=== PATIENT | female | born 1985 | race Caucasian/White ===

== ENCOUNTER 2016-10-31 04:06 | Emergency (ER) | payer OTHER ==
[2016-10-31 06:32] VITALS: BP 128/74
== END 2016-10-31 06:32 | disposition home or self-care (01) ==
LOC: ED 04:06
DX: N10 Acute pyelonephritis (principal)
CPT/HCPCS: J0696

== ENCOUNTER 2017-06-05 15:43 | Emergency (ER) | payer MEDICAID ==
[~2017-06-05] VITALS: Ht 152.4 cm; Wt 79.8 kg
[2017-06-05 15:51] VITALS: Ht 152.4 cm; Wt 79.8 kg
[2017-06-05 17:01] VITALS: BP 124/76
== END 2017-06-05 17:01 | disposition home or self-care (01) ==
LOC: ED 15:43
DX: B34.9 Viral infection, unspecified (principal); R73.03 Prediabetes
CPT/HCPCS: J1885; Q0162

== ENCOUNTER 2017-10-18 18:51 | Emergency (ER) | payer MEDICAID ==
[~2017-10-18] VITALS: Ht 157.5 cm; Wt 80.3 kg
[2017-10-18 21:11] VITALS: BP 127/83
== END 2017-10-18 21:11 | disposition home or self-care (01) ==
LOC: ED 18:51
DX: M25.572 Pain in left ankle and joints of left foot (principal)

== ENCOUNTER 2017-12-01 16:00 | Emergency (ER) | payer MEDICAID ==
[~2017-12-01] VITALS: Ht 149.9 cm; Wt 79.4 kg
[2017-12-01 16:03] VITALS: Ht 149.9 cm; Wt 79.4 kg
[2017-12-01 18:10] VITALS: BP 127/75
== END 2017-12-01 18:10 | disposition home or self-care (01) ==
LOC: ED 16:00
DX: R10.12 Left upper quadrant pain (principal)
CPT/HCPCS: J1885

== ENCOUNTER 2018-05-03 14:25 | Inpatient (IN) | payer MEDICAID ==
[~2018-05-03] VITALS: Ht 160 cm; Wt 82.6 kg
[2018-05-03 14:27] VITALS: Ht 160 cm; Wt 82.6 kg
[2018-05-03 15:05] LABS: BASOPHIL % 0.4 % (0-2); PLATELET COUNT 292 x10^3mcL (130-400); RED CELL DISTRIBUTION WIDTH 12.8 % (11.5-14.5)
[2018-05-03 15:10] LABS: CHLORIDE SERUM 98 mmol/L (98-107); SODIUM SERUM 134 mmol/L (136-145)
[2018-05-03 15:35] LABS: microscopic required? YES; urine erythrocyte TRACE (NEGATIVE)
[2018-05-03 15:35] LABS: ALBUMIN 4.2 g/dL (3.4-5.0); ALKALINE PHOSPHATASE 134 U/L (46-116); ALT/SGPT 92 U/L (14-59); AST/SGOT 52 U/L (15-37); BILIRUBIN TOTAL 0.2 mg/dL (0.20-1.00); CALCIUM 9.8 mg/dL (8.5-10.1); CARBON DIOXIDE 22.4 mmol/L (21-32); CREATININE SERUM 0.8 mg/dL (0.6-1.0); FREE T4 1.18 ng/dL (0.76-1.46); GFR1 > 60 mL/min; GLUCOSE SERUM 122 mg/dL (74-106); LIPASE 164 IU/L (73-393)
[2018-05-03 15:44] LABS: AMPHETAMINE QUAL UR NONE DETECTED (See below)
[2018-05-03 15:56] LABS: TOTAL PROTEIN, SERUM 10.3 g/dL (6.4-8.2)
[2018-05-03 19:21] LABS: CHOLESTEROL/HDL RATIO 4.8; MAGNESIUM 1.9 mg/dL (1.8-2.4)
[2018-05-03 20:45] VITALS: BP 126/75
[2018-05-03 23:10] VITALS: BP 126/75
[2018-05-04 00:40] VITALS: BP 102/60
[2018-05-04 05:40] VITALS: BP 104/58
[2018-05-04 06:56] LABS: CALCIUM 8.2 mg/dL (8.5-10.1); CARBON DIOXIDE 27.2 mmol/L (21-32); CHLORIDE SERUM 106 mmol/L (98-107); CREATININE SERUM 0.7 mg/dL (0.6-1.0); GFR1 > 60 mL/min; GLUCOSE SERUM 117 mg/dL (74-106); MAGNESIUM 2.1 mg/dL (1.8-2.4); PHOSPHOROUS 3.5 mg/dL (2.5-4.9); POTASSIUM SERUM 3.7 mmol/L (3.5-5.1); SODIUM SERUM 140 mmol/L (136-145)
[2018-05-04 07:43] LABS: BASOPHIL % 0.4 % (0-2); PLATELET COUNT 218 x10^3mcL (130-400); RED CELL DISTRIBUTION WIDTH 13.6 % (11.5-14.5)
[2018-05-04 10:03] VITALS: BP 124/76
[2018-05-04 16:33] VITALS: BP 134/84
[2018-05-04 21:17] VITALS: BP 115/72
[2018-05-05 05:31] VITALS: BP 109/74
[2018-05-05 06:40] LABS: BASOPHIL % 0.4 % (0-2); PLATELET COUNT 213 x10^3mcL (130-400); RED CELL DISTRIBUTION WIDTH 13.8 % (11.5-14.5)
[2018-05-05 07:01] LABS: CALCIUM 8.2 mg/dL (8.5-10.1); CHLORIDE SERUM 103 mmol/L (98-107); CREATININE SERUM 0.7 mg/dL (0.6-1.0); GFR1 > 60 mL/min; GLUCOSE SERUM 106 mg/dL (74-106); MAGNESIUM 2.5 mg/dL (1.8-2.4); PHOSPHOROUS 3.6 mg/dL (2.5-4.9); POTASSIUM SERUM 3.1 mmol/L (3.5-5.1); SODIUM SERUM 138 mmol/L (136-145)
[2018-05-05 08:31] VITALS: BP 118/84
[2018-05-05 12:32] VITALS: BP 103/64
[2018-05-05 16:47] VITALS: BP 107/80
[2018-05-05 20:53] VITALS: BP 125/88
[2018-05-06 06:01] VITALS: BP 113/71
[2018-05-06 07:52] LABS: BASOPHIL % 0.4 % (0-2); PLATELET COUNT 209 x10^3mcL (130-400)
[2018-05-06 08:05] LABS: CALCIUM 8.4 mg/dL (8.5-10.1); CHLORIDE SERUM 108 mmol/L (98-107); CREATININE SERUM 0.7 mg/dL (0.6-1.0); GFR1 > 60 mL/min; GLUCOSE SERUM 104 mg/dL (74-106); MAGNESIUM 2.1 mg/dL (1.8-2.4); PHOSPHOROUS 3.6 mg/dL (2.5-4.9); POTASSIUM SERUM 4.3 mmol/L (3.5-5.1); SODIUM SERUM 143 mmol/L (136-145)
[2018-05-06 09:42] VITALS: BP 132/89
[2018-05-06] MEDS ORDERED: AUGMENTIN 875-1 EACH PO (11:33)
[2018-05-06] MEDS ORDERED: TAM75 PO (11:35)
[2018-05-06] MEDS ORDERED: LAC PO (11:35)
[2018-05-06 12:50] VITALS: BP 132/89
== END 2018-05-06 14:37 | disposition home or self-care (01) | DRG 113 ==
LOC: ED 14:25 → DU 18:20
PROVIDERS: Emergency Medicine; ADMIT Internal Medicine
DX: J02.0 Streptococcal pharyngitis (principal); E11.65 Type 2 diabetes mellitus with hyperglycemia; J09.X2 Influenza due to identified novel influenza A virus with other respiratory manifestations; E83.39 Other disorders of phosphorus metabolism; E83.41 Hypermagnesemia; E83.51 Hypocalcemia; B95.0 Streptococcus, group A, as the cause of diseases classified elsewhere; E87.6 Hypokalemia; E78.5 Hyperlipidemia, unspecified; Z68.30 Body mass index [BMI] 30.0-30.9, adult; Z79.84 Long term (current) use of oral hypoglycemic drugs
CPT/HCPCS: 82962; 84439; 87804; J2270; J2405; J2550; J7030; Q0092

== ENCOUNTER 2018-07-23 20:49 | Emergency (ER) | payer MEDICAID ==
[~2018-07-23] VITALS: Ht 154.9 cm; Wt 80.7 kg
[~2018-07-23 20:49] MED LIST: AUGMENTIN 875-1 EACH PO; LAC PO; TAM75 PO
[2018-07-23 21:00] VITALS: Ht 154.9 cm; Wt 80.7 kg
[2018-07-24 02:24] VITALS: BP 126/89
== END 2018-07-24 02:24 | disposition home or self-care (01) ==
LOC: ED 20:49
DX: K40.90 Unilateral inguinal hernia, without obstruction or gangrene, not specified as recurrent (principal); E11.9 Type 2 diabetes mellitus without complications; E66.9 Obesity, unspecified
CPT/HCPCS: J1885

== ENCOUNTER 2018-10-27 12:27 | Emergency (ER) | payer MEDICAID ==
[~2018-10-27] VITALS: Ht 162.6 cm; Wt 79.8 kg
[2018-10-27 12:33] VITALS: Ht 162.6 cm; Wt 79.8 kg
[2018-10-27 13:04] LABS: BASOPHIL % 0.7 % (0-2); PLATELET COUNT 247 x10^3mcL (130-400); RED CELL DISTRIBUTION WIDTH 13.8 % (11.5-14.5)
[2018-10-27 13:15] LABS: CARBON DIOXIDE 24.9 mmol/L (21-32); CHLORIDE SERUM 104 mmol/L (98-107); CREATININE SERUM 0.6 mg/dL (0.6-1.0); GFR1 > 60 mL/min; GLUCOSE SERUM 115 mg/dL (74-106); POTASSIUM SERUM 3.6 mmol/L (3.5-5.1); SODIUM SERUM 140 mmol/L (136-145)
[2018-10-27 13:19] LABS: ALBUMIN 3.5 g/dL (3.4-5.0); ALKALINE PHOSPHATASE 105 U/L (46-116); ALT/SGPT 33 U/L (14-59); AST/SGOT 16 U/L (15-37); BILIRUBIN TOTAL 0.23 mg/dL (0.20-1.00); LIPASE 160 IU/L (73-393)
[2018-10-27 14:56] VITALS: BP 151/89
== END 2018-10-27 14:50 | disposition home or self-care (01) ==
LOC: ED 12:27
PROVIDERS: Emergency Medicine
DX: K27.9 Peptic ulcer, site unspecified, unspecified as acute or chronic, without hemorrhage or perforation (principal); K29.70 Gastritis, unspecified, without bleeding; I10 Essential (primary) hypertension; E11.9 Type 2 diabetes mellitus without complications; Z98.890 Other specified postprocedural states
CPT/HCPCS: J2270; J2405; J3490; J7030; Q0092

== ENCOUNTER 2019-01-09 18:40 | Emergency (ER) | payer MEDICAID ==
[~2019-01-09] VITALS: Ht 157.5 cm; Wt 78.9 kg
[2019-01-09 18:55] VITALS: Ht 157.5 cm; Wt 78.9 kg
[2019-01-09 19:26] LABS: BASOPHIL % 0.6 % (0-2); PLATELET COUNT 298 x10^3mcL (130-400); RED CELL DISTRIBUTION WIDTH 13.4 % (11.5-14.5)
[2019-01-09 21:14] VITALS: BP 115/69
== END 2019-01-09 21:14 | disposition home or self-care (01) ==
LOC: ED 18:40
DX: N92.6 Irregular menstruation, unspecified (principal); I10 Essential (primary) hypertension; E11.9 Type 2 diabetes mellitus without complications
CPT/HCPCS: 36415; J1885

== ENCOUNTER 2019-01-24 18:10 | Emergency (ER) | payer MEDICAID ==
[~2019-01-24] VITALS: Ht 152.4 cm; Wt 78.9 kg
[2019-01-24 18:19] VITALS: Ht 152.4 cm; Wt 78.9 kg
[2019-01-24 20:34] VITALS: BP 129/86
== END 2019-01-24 20:35 | disposition home or self-care (01) ==
LOC: ED 18:10
DX: R07.89 Other chest pain (principal); M54.9 Dorsalgia, unspecified; I10 Essential (primary) hypertension; E11.9 Type 2 diabetes mellitus without complications; Z98.890 Other specified postprocedural states
CPT/HCPCS: 82962; J1885

== ENCOUNTER 2019-04-29 16:31 | Emergency (ER) | payer MEDICAID ==
[~2019-04-29] VITALS: Ht 162.6 cm; Wt 80.7 kg
[2019-04-29 18:00] VITALS: Ht 162.6 cm; Wt 80.7 kg
[2019-04-29 19:01] LABS: BASOPHIL % 0.2 % (0-2); PLATELET COUNT 336 x10^3mcL (130-400)
[2019-04-29 19:14] LABS: CALCIUM 9.5 mg/dL (8.5-10.1); CHLORIDE SERUM 100 mmol/L (98-107); CREATININE SERUM 0.7 mg/dL (0.6-1.0); GFR1 > 60 mL/min; GLUCOSE SERUM 118 mg/dL (74-106); SODIUM SERUM 137 mmol/L (136-145)
[2019-04-29 19:19] LABS: ALBUMIN 3.7 g/dL (3.4-5.0); ALKALINE PHOSPHATASE 107 U/L (46-116); ALT/SGPT 38 U/L (14-59); AST/SGOT 20 U/L (15-37); BILIRUBIN TOTAL 0.3 mg/dL (0.20-1.00); MAGNESIUM 2.1 mg/dL (1.8-2.4)
[2019-04-29 19:20] LABS: TOTAL PROTEIN, SERUM 8.8 g/dL (6.4-8.2)
[2019-04-29 20:01] LABS: UA SPECIFIC GRAVITY >=1.030 (1.005-1.035); microscopic required? YES; urine erythrocyte TRACE (NEGATIVE)
[2019-04-29 20:48] VITALS: BP 125/92
== END 2019-04-29 20:48 | disposition home or self-care (01) ==
LOC: ED 16:31
PROVIDERS: Emergency Medicine
DX: E11.649 Type 2 diabetes mellitus with hypoglycemia without coma (principal); I10 Essential (primary) hypertension; Z98.890 Other specified postprocedural states
CPT/HCPCS: 36415; 82962; 87804

== ENCOUNTER 2019-10-27 16:51 | Emergency (ER) | payer MEDICAID ==
[~2019-10-27] VITALS: Ht 152.4 cm; Wt 78.9 kg
[2019-10-27 17:07] VITALS: Ht 152.4 cm; Wt 78.9 kg
[2019-10-27 17:35] LABS: microscopic required? NO
[2019-10-27 17:44] LABS: BASOPHIL % 0.5 % (0-2); PLATELET COUNT 321 x10^3mcL (130-400); RED CELL DISTRIBUTION WIDTH 13.5 % (11.5-14.5)
[2019-10-27 17:44] LABS: urine erythrocyte NEGATIVE (NEGATIVE)
[2019-10-27 19:10] VITALS: BP 122/70
== END 2019-10-27 19:10 | disposition home or self-care (01) ==
LOC: ED 16:51
PROVIDERS: Emergency Medicine
DX: O00.90 Unspecified ectopic pregnancy without intrauterine pregnancy (principal); O24.911 Unspecified diabetes mellitus in pregnancy, first trimester; O16.1 Unspecified maternal hypertension, first trimester; Z3A.01 Less than 8 weeks gestation of pregnancy

== ENCOUNTER 2019-10-28 17:39 | Emergency (ER) | payer MEDICAID ==
[~2019-10-28] VITALS: Ht 152.4 cm; Wt 79.4 kg
[2019-10-28 18:14] VITALS: Ht 152.4 cm; Wt 79.4 kg
[2019-10-28 21:30] VITALS: BP 112/75
== END 2019-10-28 21:30 | disposition home or self-care (01) ==
LOC: ED 17:39
DX: O00.90 Unspecified ectopic pregnancy without intrauterine pregnancy (principal); O24.911 Unspecified diabetes mellitus in pregnancy, first trimester; O16.1 Unspecified maternal hypertension, first trimester; O99.210 Obesity complicating pregnancy, unspecified trimester; Z98.890 Other specified postprocedural states; Z3A.01 Less than 8 weeks gestation of pregnancy